=== PATIENT | male | born 1960 | race African-American/Black ===

== ENCOUNTER 2022-01-13 05:54 | Emergency (ER) | payer MEDICAID ==
[~2022-01-13] VITALS: Ht 180.3 cm; Wt 85.0 kg
[2022-01-13] MEDS ORDERED: BENZONATATE 100MG CAPSULE PO ONE (07:45)
[2022-01-13] MEDS ORDERED: ACETAMINOPHEN WITH CODEINE 300/30MG TABLET PO ONE (07:45)
[2022-01-13 08:17] VITALS: BP 118/86
[2022-01-13] MEDS ORDERED: BENZ150C3 MT (11:11)
== END 2022-01-13 11:24 | disposition home or self-care (01) ==
LOC: ER 05:54
DX: J06.9 Acute upper respiratory infection, unspecified (principal); Z20.822 Contact with and (suspected) exposure to COVID-19
CPT/HCPCS: 71045; 82962; 87426; 87804; 93005; 99285; C9803

== ENCOUNTER 2022-02-05 11:02 | Emergency (ER) | payer MEDICAID ==
[~2022-02-05] VITALS: Ht 180.3 cm; Wt 81.0 kg
[~2022-02-05 11:02] MED LIST: BENZ150C3 MT
[2022-02-05 11:21] VITALS: BP 111/74
[2022-02-05] MEDS ORDERED: ACETAMINOPHEN 325MG TABLET PO ONE (13:15)
[2022-02-05] MEDS: METHOCARBAMOL 500MG TABLET PO ONE ×2 (15:10→15:12)
[2022-02-05] MEDS ORDERED: ACET-2708 MT (15:29)
== END 2022-02-05 15:50 | disposition home or self-care (01) ==
LOC: ER 11:46
DX: S00.81XA Abrasion of other part of head, initial encounter (principal); M25.562 Pain in left knee; M25.511 Pain in right shoulder; Y04.2XXA Assault by strike against or bumped into by another person, initial encounter; Y93.89 Activity, other specified; Y92.098 Other place in other non-institutional residence as the place of occurrence of the external cause; Y99.0 Civilian activity done for income or pay; E11.9 Type 2 diabetes mellitus without complications; J45.909 Unspecified asthma, uncomplicated
CPT/HCPCS: 73030; 73564; 99284

== ENCOUNTER 2022-02-09 03:01 | Emergency (ER) | payer MEDICAID ==
[~2022-02-09] VITALS: Ht 180.3 cm; Wt 80.0 kg
[~2022-02-09 03:01] MED LIST changes: +ACET-2708 MT
[2022-02-09] MEDS ORDERED: ASPIRIN 81MG TABLET PO ONE (03:15)
[2022-02-09] MEDS ORDERED: MORPHINE SULFATE 2 MG/ML CPJ (NOT FOR IM USE) IV ONE (03:15)
[2022-02-09] MEDS ORDERED: NITROGLYCERIN 0.4MG TABLET SL SL PRN (03:15)
[2022-02-09 03:48] LABS: BASOPHILS % 1.1 % (0.0-2.0); EOSINOPHILS % 2.2 % (0.0-5.0); HEMATOCRIT. 40.1 % (42.0-52.0); HEMOGLOBIN. 13.6 g/dL (14.0-18.0); LYMPHOCYTES % 33.1 % (20.0-50.0); MEAN CORPUSCULAR HEMOGLOBIN 31.6 pg (28.0-32.0); MEAN CORPUSCULAR VOLUME 93.3 fL (80.0-94.0); MEAN PLATELET VOLUME 7.9 fl (7.4-10.4); MONOCYTES % 7.4 % (2.0-8.0); NEUTROPHILS % 56.2 % (40.0-76.0); PLATELET 308 x1000/uL (130-400); RED BLOOD CELL COUNT 4.29 mill/uL (4.7-6.1); RED CELL DISTRIBUTION WIDTH 14.1 % (11.6-14.6)
[2022-02-09 04:03] LABS: CHLORIDE 108 mEq/L (98-107)
[2022-02-09 04:44] LABS: INR 1.1; PARTIAL THROMBOPLASTIN TIME 32.8 sec (23.4-31.0); PROTHROMBIN TIME 11.4 sec (9.6-11.0)
[2022-02-09] MEDS ORDERED: SODIUM CHLORIDE 0.9% 1,000 ML IV ONE (05:45)
[2022-02-09] MEDS ORDERED: BENZONATATE 200MG CAPSULE PO NR (05:45)
[2022-02-09] MEDS ORDERED: NAP5EC MT (06:26)
[2022-02-09 08:20] VITALS: BP 99/64
== END 2022-02-09 08:47 | disposition home or self-care (01) ==
LOC: ER 03:01
DX: R07.89 Other chest pain (principal); F17.200 Nicotine dependence, unspecified, uncomplicated; E78.00 Pure hypercholesterolemia, unspecified; E11.9 Type 2 diabetes mellitus without complications; J45.909 Unspecified asthma, uncomplicated
CPT/HCPCS: 36415; 71045; 80053; 83690; 83880; 84484; 85025; 85610; 85730; 93005; 96361; 96374; 99285; J2270; Z7610